=== PATIENT | female | born 1965 | race Caucasian/White ===

== ENCOUNTER 2020-09-15 17:00 | Outpatient (RCR) | payer MEDICAID, SELFPAY ==
[2020-07-01 14:36] VITALS: BMI 29.0
--- NOTE | 2020-09-12 12:56 | HP.OTEVAL_ITS ---
Patient's Visit Information YASMEEN CRUZ is a 55 year old F, referred to Occupational Therapy by Dr. Ilene Hammond DO, with a diagnosis of bilateral CMC OA. Date of Evaluation: 09/12/20 Occupational Therapist: Bonny Ruiz, OTR/L, CHT - Subjective This 55 year old female was seen for OT eval with dx of bilateral OA CMC. pt has order from Dr. Hammond on 08/07/20 but this is the first she was able to make it to the apt. due to car trouble. pt states she has had symptoms of bilateral thumb pain about a year ago. Pt states she did Physical therapy for her hands and had good results. Pt states she has had cortisone shots in both thumbs now. pt states she continues to have pain with work tasks. - ADLs Dressing: Coat, Pants Kitchen: Peel fruits & vegetables, Open jars, Open bottle caps - Pain bilateral thumbs 5 Pain Intensity Range: 0, 8 - ROM Wrist: right 80/80 left 80/75 CMC: right 15 left 15 MP: right 60 left 60 IP: right 80 left 70 Radial Abduction: right 40 left 55 Opposition: right 10 left 10 ROM Comments: pt demo with OA deformities on bilateral CMCs - Strength Helper Shear Operator: right 50# left 55# Lateral Pinch: right 12# left 10# Tripod Pinch: right 12# left 10# Strength Comments: pt demo with bilateral thumb instability with resititive pinch - Quick DASH-Disab of Arm,Shoulder& Hand Quick DASH Score: 61.6650 - Goals Goal:: pt will demo a increase in lateral/tripod pinch 2# with good thumb positioning to increase stabilization for pinch with ADLs and IADL task by d/c Goal:: pt will report no pain greater than 2/10 with use of bilateral UE/hands with ADLs and IADLs by d/c Goal:: Pt will demonstrate understanding of joint protection and adaptive equipment to decrease joint stress while performing ADL tasks by d/c. pt will demo understanding of using pre-fabricated hand base brace while working to decrease stress on CMC joint by end of 2nd session. - Rehabilitation General Assessment: pt demo with pain of bilateral CMC with weakness limiting her use of bilateral hand for ADls and IADL. pt would benefit from skilled OT services 1-2x week for 4 weeks. Today therapist ed. pt on cmc anatomy and dx of cmc OA along with joint protection roque. and need of supportive bracing. Therapy will cont with thumb stabilization ex. and modalities to mtg pain. Pt demo understanding and agree to POC. Rehabilitation Potential: Fair - Anticipated Interventions Strengthening, Modalities, Orthoses, Joint Protection/Energy Conservation, Ergonomic Education, Home Program - Visit Plan Frequency: 1-2x /Week Duration: 3 Weeks General Plan: thumb stabilizaton ex. joint protection. ad. devices. use of protective bracing TEXT: Thank you for the opportunity to evaluate your patient. For Medicare and Medicare HMO plans, please review the plan of care and approve it. It will need to be FAXED BACK to us at [phone] for Medicare purposes. Please let me know if there are questions or concerns regarding this plan of care. Physician Signature: Date:
== END 2020-09-15 19:00 | disposition home or self-care (01) ==
LOC: OT 17:00
PROVIDERS: PCP Nurse Practitioner Family; Referring Provider Orthopaedic Surgery; Visit Provider Orthopaedic Surgery
DX: M19.90 Unspecified osteoarthritis, unspecified site (principal)
CPT/HCPCS: 97110; 97166; 97530

== ENCOUNTER → 2021-05-08 16:32 | Outpatient (CLI) | payer MEDICAID, SELFPAY ==
--- NOTE | 2021-05-08 16:33 | MRI_ITS ---
STUDY: MRI LUMBAR SPINE WITHOUT CONTRAST REASON FOR EXAM: Female, 55 years old. Pain in the back, legs, and hips TECHNIQUE: Standardized fat and water weighted pulse sequences were obtained in the sagittal and axial planes. COMPARISON: None FINDINGS: T12-L1: Normal endplates. Normal disc height, hydration and morphology. Normal bilateral facet joints. Normal central canal and bilateral lateral recesses. Normal bilateral intervertebral neural foramina. Normal lumbar lordosis. There is no substantial scoliosis. Normal conus medullaris that terminates at the level of T12-L1. L1-2: Normal endplates. Normal disc height, hydration and morphology. Normal bilateral facet joints. Normal central canal and bilateral lateral recesses. Normal bilateral intervertebral neural foramina. L2-3: Normal endplates. Disc bulge. Normal bilateral facet joints. Normal central canal and bilateral lateral recesses. Normal bilateral intervertebral neural foramina. L3-4: Normal endplates. Disc bulge and mild facet arthrosis. Normal central canal and bilateral lateral recesses. Normal bilateral intervertebral neural foramina. L4-5: Normal endplates. Mild disc bulge. Mild left facet arthrosis. Normal central canal and bilateral lateral recesses. Normal bilateral intervertebral neural foramina. L5-S1: Normal endplates. Normal disc height, hydration and morphology. Mild right facet arthrosis. Normal central canal and bilateral lateral recesses. Normal bilateral intervertebral neural foramina. Normal visualized sacral ala. Normal visualized paraspinous soft tissue structures. MRI/Spine Lumbar (Routine) IMPRESSION: Mid to lower lumbar spine disc bulge and facet arthrosis. No spinal canal stenosis. Electronically Signed: Christiano Flynn MD at 22:08 EDT Tel , Service support ,
== END ==
PROVIDERS: PCP Nurse Practitioner Family; Referring Provider Orthopaedic Surgery; Visit Provider Orthopaedic Surgery
DX: M51.26 Other intervertebral disc displacement, lumbar region (principal)
CPT/HCPCS: 72148

== ENCOUNTER → 2021-07-16 16:26 | Outpatient (CLI) | payer MEDICAID, SELFPAY ==
--- NOTE | 2021-07-16 17:10 | RAD_ITS ---
STUDY: X-RAY - PELVIS AND BILATERAL HIPS REASON FOR EXAM: Female, 56 years old. HIP PAIN TECHNIQUE: AP view of the pelvis.? 2 views of the right hip, and 2 views of the left hip were obtained. COMPARISON: None. FINDINGS: There is a non-specific bowel gas pattern. Normal visualized soft tissue structures. Normal bilateral iliac wings, sacroiliac joints and visualized sacrum. Normal bilateral superior and inferior pubic rami. Normal pubic symphysis. Normal bilateral ischial tuberosities. Normal visualized right femoral head. Normal right acetabulum. Normal right hip joint. Normal visualized left femoral head. Normal left acetabulum. Normal left hip joint. RAD/Hips B/L min 2 views w/ Pelvis IMPRESSION: Normal x-ray examination of the pelvis and bilateral hips. Electronically Signed: Justo Mcdermott MD at 10:04 EST Tel , Service support ,
== END ==
PROVIDERS: PCP Nurse Practitioner Family; Referring Provider Anesthesiology Pain Medicine; Visit Provider Anesthesiology Pain Medicine
DX: M25.559 Pain in unspecified hip (principal)
CPT/HCPCS: 73521

== ENCOUNTER → 2024-03-12 | Outpatient (CLI) | payer MEDICAID, SELFPAY ==
--- NOTE | 2024-03-12 14:03 | RAD_ITS ---
STUDY: X-RAY - LUMBAR SPINE REASON FOR EXAM: Female, 58 years old. Radiculopathy. TECHNIQUE: 2 view(s) of the lumbar spine were obtained. COMPARISON: April 13, 2021 FINDINGS: Osteopenia. Normal lumbar lordosis. Mild rotatory dextroscoliosis, unchanged. Normal alignment of the vertebral bodies. Diffuse mild lower thoracic and lumbosacral facet sclerosis. Diffuse intervertebral disc space narrowing with small osteophytes. Cholecystectomy clips. RAD/Lumbar Spine 2 or 3 Views IMPRESSION: Osteopenia with diffuse mild lower thoracic and lumbosacral spondylosis, relatively unchanged from comparison study. No acute abnormality or erosive changes. Electronically Signed: Louis Bryant MD at 14:42 EDT ,
== END | disposition home or self-care (01) ==
LOC: RAD 14:01
PROVIDERS: PCP Nurse Practitioner Family; Referring Provider Anesthesiology Pain Medicine; Visit Provider Anesthesiology Pain Medicine
DX: M54.16 Radiculopathy, lumbar region (principal)
CPT/HCPCS: 72100

== ENCOUNTER 2024-05-02 14:00 | Outpatient (RCR) | payer MEDICAID, SELFPAY ==
--- NOTE | 2024-03-15 18:30 | HP.PTEVAL ---
Patient's Visit Information Visit Information Visit Information: YASMEEN CRUZ is a 58 year old F referred to Physical Therapy by Dr. Beth Tavarez MD with a diagnosis of Back pain, leg pain. Date of Evaluation: 03/15/24 Physical Therapist: Les Penny, DPT, OCS, CSCS Visit Plan Frequency: 2x /Week Duration: 4-6 Weeks Plan: 2x/week for 4-8 weeks, start in pool for R psoas and quad stretching, B ITB stretches, strengthening of core and LE focussing on hip stabs and posture. Progression to I pool program and or HEP. sweeping body mechanics. Subjective Subjective: LB hurts and posterior hips and last year had B lateral hip pain. Sees [facility] for injections but did not have insurance for a couple years. Consult yesterday. Asked her to take arthritis meds and cream and she does that. nothing stronger yet. Has been hurting for years 3-4. Insidious onset. 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 No chemo or radiation. Pain is 8/10 and worse with sitting and standing too long. 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 Sleep is interrupted at some times. Lies around alot. OK if I keep going but lazy day and stopping always hurt. No regular exercises. Not active. Pain patches used alot. basic ADLs are getting done. Pain LBP: Pain Intensity (Out of 10): 1 Pain Intensity Range: 0 and 8 Comment: in am better Objective Objective: Walks into PT I without AD. Trasnfers bed and chair I. Steps recirpocally with some back pain and uses rail. weakness evident eccentrically in legs descending. core weakness with seated instability testing and hip flexor testing is evident with contralateral hip IR and leaning. LB AROM ext and R SB are min limited and painful, L SB is good, flexion is min limited. hip AROM limited R side with flexion adn extension vs L(h/o lymph node surgery) and painful to stretch quad and psoas on that side. mod tight HS B, quad and psoas and ITB B. R >L knee and ankle AROM WFL. reflexes 2/3 patella and achilles B. Sensation numby in R lateral leg(since lymph sugery) strength hip abd and ext 3/5 B, flexion 3+ B, knee flex/ext 4- B, core 3 B, ankles 4 B. - SLR, - Slump test. good balance today but weakness is evident in gait and transitions Balance/Special Test Scores Oswestry Low Back Score: 26 Goals Goal 1:: work without increased pain Goal Time Frame: 6-8 Weeks Goal 2:: I appropriate pool or home based core strength, LE strength adn stretching and general ex for posture. Goal Time Frame: 4-6 Weeks Goal 3:: Pain 2/10 at worst and 80% improved in legs and LB. Goal Time Frame: 4-6 Weeks Goal 4:: oswestry LB 10 or less Goal Time Frame: 4-6 Weeks Rehabilitation Potential Physical Therapy Diagnosis: degeneration in LB leading to painful mobility and activity. Rehabilitation Potential: Fair Anticipated Interventions Patient/Client Instruction: Educate patient on: Condition and Plan of Care For the Purpose of:: To decrease pain, To increase ROM, To improve nutrient delivery to tissue, To improve muscle performance and motor function and To increase tolerance to activity/condition/position Therapeutic Exercise to Include: Strength training, Postural training, Flexibilty training and In an aquatic setting For the Purpose of:: To decrease pain, To increase ROM, To improve nutrient delivery to tissue, To improve muscle performance and motor function, To increase tolerance to activity/condition/position and To improve gait and locomotor functions Text: Thank you for the opportunity to evaluate your patient. For Medicare and Medicare HMO plans, please review the plan of care and approve it. It will need to be FAXED BACK to us at [phone] for Medicare purposes. For Medicare only, by signing this I certify the plan of care. Please let me know if there are questions or concerns regarding this plan of care. Physician Signature: Date:
--- NOTE | 2024-05-02 14:19 | HP.PTDCSUM ---
Discharge Summary D/C summary: It has been my pleasure to treat YASMEEN CRUZ referred by Dr. Beth Tavarez MD, with the diagnosis of Back pain, leg pain for a total of 9 visit(s). Discharge Date: Please see the following information for a summary of their discharge status. Subjective Subjective: Feels better in the pool. Lasts for a few hours. Pain then returns a few hours later. 9/10 with work in L hip, better if she lies down. Sleep is OK as far as leg pain goes. Activities at home avoids cleaning as it would make her worse. [facility] sent her and will f/u next week. Injection relief was great adn lasted for a coupkle weeks. Has seen no other doctors. Pain LBP: Pain Intensity (Out of 10): 8 R knee: Pain Intensity (Out of 10): Unrated R hip: Pain Intensity (Out of 10): 7 Overall Improvement % Improvement: 0 Objective Objective/Function: Good LB AROM but pain L LB with ext and L SB. Walking shows L antalgia today in gait but I. Overall getting some exercises but not feeling much better in pain and still needs to do job which is what really flares her up being on feet alot. Goals Goal 1:: work without increased pain Goal Progress: Not Progressing Goal 2:: I appropriate pool or home based core strength, LE strength adn stretching and general ex for posture. Goal Progress: Goal Met Goal 3:: Pain 2/10 at worst and 80% improved in legs and LB. Goal Progress: Not Progressing Goal 4:: oswestry LB 10 or less Goal Progress: Not Progressing Plan Plan: d/c, pt back to doctor next week. D/C Information d/c sentence: If there are questions or concerns regarding this patient's physical therapy, please feel free to call me at [phone]. Thank you for the referral of this patient. Sincerely, Les Penny, DPT, OCS, CSCS Balance/Gait/Functional tests Balance/Special Test Scores Oswestry Low Back Score: 22 Improvement % Improvement: 0
== END 2024-05-02 19:00 | disposition home or self-care (01) ==
LOC: PT 14:00
PROVIDERS: PCP Nurse Practitioner Family; Visit Provider Anesthesiology Pain Medicine
DX: M54.9 Dorsalgia, unspecified (principal); M79.606 Pain in leg, unspecified
CPT/HCPCS: 97113; 97161

== ENCOUNTER → 2024-06-06 | Outpatient (CLI) | payer MEDICAID, SELFPAY ==
--- NOTE | 2024-06-06 12:51 | RAD_ITS ---
STUDY: X-RAY - PELVIS AND LEFT HIP REASON FOR EXAM: Female, 58 years old. OA TECHNIQUE: 3 views of the pelvis and left hip. COMPARISON: Pelvis and bilateral hip radiographs dated 07/16/2021. FINDINGS: There is a non-specific bowel gas pattern. Again seen are surgical clips overlying the right groin region. Normal bilateral iliac wings, sacroiliac joints and visualized sacrum. Normal bilateral superior and inferior pubic rami. Normal pubic symphysis. Normal bilateral ischial tuberosities. Normal visualized femoral head. Normal acetabulum. Normal hip joint. RAD/HIP, UNI W/ Pelvis 2-3 Views IMPRESSION: Unremarkable x-ray examination of the pelvis and left hip. Electronically Signed: Richi Blevins MD at 16:00 EST ,
== END | disposition home or self-care (01) ==
LOC: RAD 12:45
PROVIDERS: Referring Provider Anesthesiology Pain Medicine; Visit Provider Anesthesiology Pain Medicine
DX: M16.12 Unilateral primary osteoarthritis, left hip (principal)
CPT/HCPCS: 73502

== ENCOUNTER → 2024-06-12 | Outpatient (CLI) | payer MEDICAID, SELFPAY ==
--- NOTE | 2024-06-12 07:02 | MRI_ITS ---
STUDY: MRI LUMBAR SPINE WITHOUT CONTRAST REASON FOR EXAM: Female, 58 years old. RADICULOPATHY TECHNIQUE: Standardized fat and water weighted pulse sequences were obtained in the sagittal and axial planes. COMPARISON: 05/08/2021 FINDINGS: T12-L1: Normal endplates. Normal disc height, hydration and morphology. Normal bilateral facet joints. Normal central canal and bilateral lateral recesses. Normal bilateral intervertebral neural foramina. Normal lumbar lordosis. Mild dextroscoliosis centered at L2/L3. Normal conus medullaris that terminates at the T12/L1. L1-2: Normal endplates. Normal disc height, hydration and morphology. Normal bilateral facet joints. Normal central canal and bilateral lateral recesses. Normal bilateral intervertebral neural foramina. L2-3: No change in a mild bilobed disc protrusion produces mild spinal stenosis and mild left neural foraminal stenosis. Associated Modic type I endplate changes. L3-4: No change in the mild bilobed disc protrusion produces mild spinal stenosis and mild bilateral neural foraminal stenosis. L4-5: No change in a mild bilobed disc protrusion produces mild spinal stenosis and mild bilateral neural foraminal stenosis. L5-S1: Interval development of a moderate size right foraminal disc protrusion produces moderate spinal stenosis with abutment of the right L5 nerve root. No central spinal stenosis. Normal visualized sacral ala. Normal visualized paraspinous soft tissue structures. MRI/Spine Lumbar (Routine) IMPRESSION: Worsening degenerative disc disease L5/S1 as described above. Electronically Signed: Justo Mcdermott MD at 13:49 EST ,
== END | disposition home or self-care (01) ==
LOC: MRI 06:59
PROVIDERS: Referring Provider Anesthesiology Pain Medicine; Visit Provider Anesthesiology Pain Medicine
DX: M54.16 Radiculopathy, lumbar region (principal)
CPT/HCPCS: 72148

== ENCOUNTER → 2024-06-27 | Outpatient (CLI) | payer MEDICAID, SELFPAY ==
[2024-06-27 10:58] LABS: Amphetamine Urine VISTA NEGATIVE (<1000 ng/mL); Barbiturate Urine VISTA NEGATIVE (< 200 ng/mL); Benzodiazepine Urine VISTA NEGATIVE (< 200 ng/mL); Cocaine Urine VISTA NEGATIVE (< 300 ng/mL); Ecstacy Urine VISTA NEGATIVE (< 500 ng/mL); Methadone Urine VISTA NEGATIVE (< 300 ng/mL); PCP Urine VISTA NEGATIVE (< 25 ng/mL); THC Urine VISTA POSITIVE (< 50 ng/mL); Vista UDS pH Range 5
== END | disposition home or self-care (01) ==
PROVIDERS: Referring Provider Anesthesiology Pain Medicine; Visit Provider Anesthesiology Pain Medicine
DX: F11.20 Opioid dependence, uncomplicated (principal)
CPT/HCPCS: 80307

== ENCOUNTER → 2024-07-26 | Outpatient (CLI) | payer MEDICAID, SELFPAY ==
[2024-07-26 12:31] LABS: Absolute Lymphocyte Count 2.22 X10^3/uL (0.83-4.51); Absolute Neutrophil Count 3.7 X10^3/uL (2.0-7.7); Basophil# 0.05 X10^3/uL; Basophil% 0.8 % (0-1); Eosinophil# 0.09 X10^3/uL; Eosinophils% 1.4 % (0-5); Hematocrit 43.5 % (37-47); Hemoglobin 13.8 g/dL (12.0-15.0); Lymphocyte # 2.22 X10^3/ul (0.83-4.51); Lymphocyte % 33.7 % (19-41); Mean Corp Hgb Conc 31.7 g/dL (32-36); Mean Corpuscular Hgb 29.9 pg (27.0-32.0); Mean Corpuscular Volume 94.2 fL (81-99); Mean Platelet Vol. 10.9 fl (6.2-12.0); Monocyte% 7.6 % (0-10); NRBC Flagged by Analyzer 0 % (0-5); Neutrophil % 56.2 % (47-70); Platelet Count 203 K/mm3 (150-450); Red Blood Count 4.62 M/mm3 (4.2-5.4); White Blood Count 6.6 K/mm3 (4.4-11.0)
[2024-07-26 13:00] LABS: Vitamin B12 443 pg/mL (211-911); Vitamin D,25 Hydroxy 20.6 ng/mL
[2024-07-26 13:01] LABS: AST(SGOT) 19 U/L (15-37); Alanine Aminotransfer ALT/SGPT 22 U/L (13-56); Albumin, Serum 3.9 g/dL (3.2-5.0); Alkaline Phosphatase 82 U/L (45-117); Anion Gap 5 (5-15); BUN 16 mg/dL (7-18); BUN/Creat Ratio 15.8 RATIO (10-20); Calcium,Total 9.9 mg/dL (8.5-10.1); Chloride 105 mmol/L (98-107); Cholesterol 272 mg/dL (200); Creatinine, Serum 1.01 mg/dL (0.55-1.02); EST Glomerular Filtration Rate 59 mL/min (>60); Est Glom Filt Rate - Afr Amer 72 mL/min (>60); Glucose 98 mg/dL (74-106); High Density Lipoprotein 69 mg/dL; Potassium 4.5 mmol/L (3.5-5.1); Protein, Total 7.9 g/dL (6.4-8.2); Sodium Level 136 mmol/L (136-145); Triglycerides 107 mg/dL; Very Low Density Lipoprotein 21 mg/dL (5-40)
== END | disposition home or self-care (01) ==
LOC: BIMLAB 09:05
PROVIDERS: Referring Provider Internal Medicine; Visit Provider Internal Medicine
DX: I10 Essential (primary) hypertension (principal); F41.9 Anxiety disorder, unspecified; F32.A Depression, unspecified; Z13.6 Encounter for screening for cardiovascular disorders; R53.83 Other fatigue
CPT/HCPCS: 36415; 80053; 80061; 82306; 82607; 84443; 85025

== ENCOUNTER → 2024-08-08 | Outpatient (CLI) | payer MEDICAID, SELFPAY ==
--- NOTE | 2024-08-08 11:33 | BI_ITS ---
MAMMOGRAPHY - BILATERAL SCREENING REASON FOR EXAM: Female, 59 years old. Routine annual screening examination. PERTINENT HISTORY: Non-contributory. TECHNIQUE: Digital bilateral breast tai (3D mammographic acquisition) in the CC and MLO projections. 2-D mediolateral oblique (MLO) and craniocaudad (CC) views of both breasts were obtained. CAD: Full Field Digital Mammography with Computer Added Detection was performed. COMPARISON: Comparison is made with prior outside examination dated August 16, 2022. FINDINGS: Breast Composition: There are scattered areas of fibroglandular density. There are no dominant masses or suspicious calcifications. No other significant abnormalities are identified. There has been no significant change since the prior study. BI/SCRN MAMM (CAD)W/TAI BILAT IMPRESSION: Stable bilateral screening mammogram. Yearly follow-up mammogram recommended. (A) ASSESSMENT CATEGORY: BIRADS Category 1: Negative. A letter regarding these results will be sent to the patient by the facility within 30 days. Approximately 10% of breast cancers are not detected by mammography. A normal mammogram should not delay biopsy of a clinically suspicious abnormality. [id number] Electronically Signed: Joaquín Diamond MD at 9:11 EST ,
== END | disposition home or self-care (01) ==
PROVIDERS: PCP Internal Medicine; Referring Provider Internal Medicine; Visit Provider Internal Medicine
DX: Z12.31 Encounter for screening mammogram for malignant neoplasm of breast (principal)
CPT/HCPCS: 77063; 77067

== ENCOUNTER → 2024-08-15 | Outpatient (CLI) | payer MEDICAID, SELFPAY ==
--- NOTE | 2024-08-15 14:18 | CT_ITS ---
PROCEDURE: ABDOMEN/PELVIS WITH CONTRAST REASON FOR EXAM: Left-sided groin pain. TECHNIQUE: Axial CT images of the abdomen and pelvis was performed with IV contrast enhancement, following the o ral administration of contrast material. Sagittal and coronal reconstructed images were performed for better visualization of the horizontal structures. IV CONTRAST: 98 mL of Isovue-300 COMPARISON: None. FINDINGS: Lung bases: Trace atelectasis within the lung bases. Postsurgical changes seen at the GE junction. Large amount of debris seen within the stomach. Liver: Liver enhances homogeneously. No enhancing masses are identified. Gallbladder: Evidence of prior cholecystectomy. Spleen: Slightly heterogeneous enhancement, likely secondary to timing of bolus. Pancreas: No enhancing masses are identified. No peripancreatic inflammatory changes. Adrenals: No adrenal masses are identified, bilaterally. Kidneys: Enhance symmetrically. No calcifications or obstructive uropathy involving the bilateral co llecting systems. Seized Bladder: Moderately distended. No bladder calculi are seen. Reproductive Organs: Uterus is slightly eccentric towards the left. Bowel: No bowel obstruction is identified. Left colon is predominantly decompressed. Occasional div erticula involving the sigmoid colon without gross surrounding inflammatory changes. Appendix: Normal. Lymph nodes: Few subcentimeter lymph nodes within the periaortic region, inguinal regions, within nor mal limits per size criteria. There is no evidence of lymphadenopathy. Vasculature: Minimal vascular calcifications within the abdominal aorta and iliac arteries. Peritoneum / Retroperitoneum: No ascites. No free air. Bones: Dextrocurvature and spondylotic change involving the lumbar spine. No acute fractures or disl ocations are identified. 2.3 cm fat containing umbilical hernia. No bowel loop involvement. Surgical clips overlie the right inguinal region. Bilateral inguinal canals are fatty filled in patulous. CT/Abdomen/Pelvis WITH Contrast IMPRESSION: 1. No acute intra-abdominal process identified. 2. Kidneys are negative for obstructive uropathy bilaterally. 3. Few subcentimeter lymph nodes are identified, as detailed above. No evidenc e of lymphadenopathy appreciated. 4. Small 2.3 cm fat containing umbilical hernia. No bowel loop involvement. 5. Postsurgical changes, as detailed above. One or more dose reduction techniques were used (e.g., Automated exposure contr ol, adjustment of the mA and/or kV according to patient size, use of iterative reconstruction technique). Reading Location: [facility]
== END | disposition home or self-care (01) ==
LOC: CT 14:16
PROVIDERS: PCP Internal Medicine; Referring Provider Internal Medicine; Visit Provider Internal Medicine
DX: R10.32 Left lower quadrant pain (principal)
CPT/HCPCS: 74177; Q9967

== ENCOUNTER → 2024-11-28 | Outpatient (CLI) | payer MEDICAID, SELFPAY ==
[2024-11-30 13:08] LABS: HPV APTIMA, High Risk Negative (Negative)
== END | disposition home or self-care (01) ==
LOC: LABSPEC 10:53
PROVIDERS: PCP Internal Medicine; Referring Provider Nurse Practitioner Women's Health; Visit Provider Nurse Practitioner Women's Health
DX: Z12.4 Encounter for screening for malignant neoplasm of cervix (principal)
CPT/HCPCS: 87624; 88175; G0145

== ENCOUNTER → 2024-12-27 | Outpatient (CLI) | payer MEDICAID, SELFPAY ==
[2024-12-27 16:01] LABS: Erythrocyte Sedimentation Rate 9 mm/hr (0-30)
[2024-12-27 18:10] LABS: CRP < 3.00 mg/L (0.0-3.0); Rheumatoid Factor < 10.0 IU/mL (<15)
[2024-12-29 12:09] LABS: CCP IgG Antibodies 7 units (0-19)
[2024-12-31 12:08] LABS: ANTINUCLEAR ANTIBODIES DIRECT Negative (Negative); Anti-Centromere B Ab <0.2 AI (0.0-0.9); Anti-Chromatin 0.3 AI (0.0-0.9); Anti-Jo <0.2 AI (0.0-0.9); Anti-Scleroderma-70 AB <0.2 AI (0.0-0.9); Anti-dsDNA Ab <1 IU/mL (0-9); RNP Ab <0.2 AI (0.0-0.9); SJOGREN'S Anti-SS-A test < 0.2 AI (0.0-0.9); SJOGREN'S Anti-SS-B test < 0.2 AI (0.0-0.9); Smith Ab <0.2 AI (0.0-0.9)
== END | disposition home or self-care (01) ==
LOC: BIMLAB 14:18
PROVIDERS: PCP Internal Medicine; Referring Provider Internal Medicine; Visit Provider Internal Medicine
DX: M79.7 Fibromyalgia (principal)
CPT/HCPCS: 36415; 85652; 86038; 86140; 86200; 86225; 86235; 86431